=== PATIENT | female | born 1980 | race Caucasian/White ===

== ENCOUNTER 2017-12-23 15:56 | Emergency (ER) | payer SELFPAY ==
[~2017-12-23] VITALS: Ht 177.8 cm; Wt 80.0 kg
[~2017-12-23 15:56] MED LIST: IBUP-1222 PO; IBUP-1223 PO; MEDR5TAB PO
[2017-12-23 16:52] LABS: BASOPHILS # (AUTO) 0.09 x10^3/uL (0-0.1); BASOPHILS % (AUTO) 1 % (0-1); EOSINOPHILS # (AUTO) 0.65 x10^3/uL (0-0.4); EOSINOPHILS % (AUTO) 6 % (1-7); LYMPHOCYTES # (AUTO) 2.37 x10^3/uL (1-3.4); LYMPHOCYTES % (AUTO) 22 % (22-44); MD NO; MEAN CORPUSCULAR HEMOGLOBIN 30.9 pg (27.0-34.8); MEAN CORPUSCULAR HGB CONC 34.3 g/dL (32.4-35.8); MEAN CORPUSCULAR VOLUME 90.2 fL (80-100); MEAN PLATELET VOLUME 8.1 fL (7.4-10.4); MONOCYTES # (AUTO) 0.83 x10^3/uL (0.2-0.8); MONOCYTES % (AUTO) 8 % (2-9); NEUTROPHILS # (AUTO) 6.81 x10^3/uL (1.8-6.8); NEUTROPHILS % (AUTO) 63 % (42-75); PLATELET COUNT 360 x10^3/uL (130-400); RED BLOOD COUNT 4.56 x10^6/uL (3.82-5.3)
[2017-12-23 16:57] LABS: ALANINE AMINOTRANSFERASE 30 U/L (12-78); ALBUMIN 3.4 g/dL (3.4-5.0); ANION GAP 8 mmol/L (5-15); CALCIUM 8.6 mg/dL (8.5-10.1); CHLORIDE 109 mmol/L (98-107)
[2017-12-23 17:06] LABS: ALKALINE PHOSPHATASE 51 U/L (45-117); BILIRUBIN,TOTAL 0.2 mg/dL (0.2-1.0); CREATININE 0.86 mg/dL (0.55-1.02); T4 (THYROXINE) 9.7 mcg/dL (4.8-13.9); TOTAL PROTEIN 7.6 g/dL (6.4-8.2)
[2017-12-23 17:28] LABS: HCG UR SG 1.023 (1.003-1.030); MICROSCOPIC NOT IND
[2017-12-23 17:32] LABS: CULTURE INDICATED? NO
[2017-12-23 18:34] VITALS: BP 135/84
== END 2017-12-23 18:36 | disposition home or self-care (01) ==
LOC: ED 18:30
DX: R60.0 Localized edema (principal); M79.661 Pain in right lower leg; M79.662 Pain in left lower leg
CPT/HCPCS: 36415; 80053; 81003; 81025; 83880; 84436; 84481; 85025; 99284

== ENCOUNTER 2019-08-13 09:13 | Emergency (ER) | payer BC, OTHER ==
[~2019-08-13] VITALS: Ht 177.8 cm; Wt 99.8 kg
--- NOTE | 2019-08-13 09:26 | NUR ---
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
[2019-08-13] MEDS ORDERED: DIPHENHYDRAMINE 50 MG/ML, 1ML ONE (09:55)
[2019-08-13] MEDS ORDERED: METOCLOPRAMIDE 5 MG/ML, 2ML ONE (09:55)
[2019-08-13] MEDS ORDERED: KETOROLAC 30 MG/1 ML ONE (09:55)
[2019-08-13] MEDS ORDERED: DIPHENHYDRAMINE 50 MG/ML, 1ML IVPush ONE (10:00)
[2019-08-13] MEDS ORDERED: METOCLOPRAMIDE 5 MG/ML, 2ML IVPush ONE (10:00)
[2019-08-13] MEDS ORDERED: SODIUM CHLORIDE FLUSH 10ML SYR IVF ONE (10:00)
[2019-08-13] MEDS ORDERED: KETOROLAC 30 MG/1 ML IVPush ONE (10:00)
--- NOTE | 2019-08-13 10:11 | NUR ---
meds per aug. piv est. call [facility]. lights dimmed for comfort. nad. as
[2019-08-13 11:37] VITALS: BP 115/73
== END 2019-08-13 11:39 | disposition home or self-care (01) ==
LOC: ED 10:33
DX: G43.011 Migraine without aura, intractable, with status migrainosus (principal)
CPT/HCPCS: 87081; 87880; 96374; 96375; 99284; J1200; J1885; J2765